=== PATIENT | female | born 1985 | race Caucasian/White ===

== ENCOUNTER 2016-10-28 21:42 | Inpatient (IN) | payer OTHER ==
[~2016-10-28] VITALS: Ht 157.5 cm; Wt 75.4 kg
[2016-10-28] MEDS ORDERED: CHOL2000 PO (23:59)
[2016-10-28] MEDS ORDERED: LORA1TAB PO (23:59)
[2016-10-28] MEDS ORDERED: TOPI50TA38 PO (23:59)
[2016-10-28] MEDS ORDERED: SPIR50TA2 PO (23:59)
[2016-10-28] MEDS ORDERED: MILN50TA PO (23:59)
[2016-10-28] MEDS ORDERED: LEVE500T56 PO (23:59)
[2016-10-28] MEDS ORDERED: LOSA25TA4 PO (23:59)
[2016-10-29] VITALS (8 sets, daily range): BP systolic 97–120; BP diastolic 51–71
[2016-10-29] MEDS ORDERED: ONDANSETRON PF 4 MG/2 ML VIAL. IV PRN (00:15)
[2016-10-29] MEDS ORDERED: HYDROcodone/APAP 5/325MG 1 TAB TABLET PO PRN (00:15)
[2016-10-29] MEDS ORDERED: MORPHINE SULFATE 2 MG/ML DISP.SYRIN. IV PRN (00:15)
[2016-10-29] MEDS ORDERED: ACETAMINOPHEN 325 MG TABLET. PO PRN (00:15)
[2016-10-29] MEDS ORDERED: LOSARTAN POTASSIUM 25 MG TABLET. PO SCH (00:30)
[2016-10-29] MEDS: levETIRAcetam 500 MG TABLET PO SCH ×2 (00:44→11:37)
[2016-10-29] MEDS: MILNACIPRAN 50 MG TABLET PO SCH ×2 (00:44→11:37)
[2016-10-29] MEDS: TOPIRAMATE 25 MG TABLET. PO SCH ×2 (00:44→11:37)
[2016-10-29] MEDS: IV NORMAL SALINE 1000ML BAG 1,000 ML IV SCH ×2 (00:47→10:15)
[2016-10-29 06:40] LABS: BASO # 0.1 x10^3/uL (0.0-0.2); BASO % 1 % (0-3); EOS % 1 % (0-3); HEMATOCRIT 35.8 % (36.0-47.0); HEMOGLOBIN 12.2 g/dL (12.0-15.5); LYMPH # 2.1 x10^3/uL (1.0-4.8); LYMPH % 36 % (24-48); MEAN CORPUSCULAR HEMOGLOBIN 31 pg (25-35); MEAN CORPUSCULAR HGB CONC 34 g/dL (31-37); MEAN CORPUSCULAR VOLUME 92 fL (79-100); MONO % 11 % (0-9); NEUT % 52 % (31-73); PLATELET COUNT 259 x10^3/uL (140-400); RED CELL DISTRIBUTION WIDTH 12.4 % (11.5-14.5)
[2016-10-29] MEDS ORDERED: ASPIRIN 325 MG TABLET PO ONE (08:00)
[2016-10-29] MEDS ORDERED: CHOLECALCIFEROL (VITAMIN D3) 1,000 UNIT TABLET PO SCH (09:00)
[2016-10-29] MEDS ORDERED: SPIRONOLACTONE 25 MG TABLET PO SCH (09:00)
--- NOTE | 2016-10-29 09:24 | PDOC2 ---
CARDIAC CONSULT DATE OF CONSULT Date of Consult DATE: 10/29/16 TIME: 09:23 REASON FOR CONSULT Reason for Consult: CP REFERRING PHYSICIAN Referring Physician: Dr. Kylee Thornton SOURCE Source: Chart review, Patient HISTORY OF PRESENT ILLNESS HISTORY OF PRESENT ILLNESS 31 year old female transferred from ER @ [facility] for CP, dizziness, and headache. ? sent there from PCP's office as unable to obtain pulse. Reportedly has been on the couch for the last week due to fatigue. When she stands up, she feels dizzy, develops bilateral chest tightness with a fast heart rate, becomes short of breath, her vision goes "white" and both hands become numbing and tingly. Headaches described as bilateral squeezing of her head and not similar to her migraines. Reports her BP has been low in the 90s (treated for HTN with losartan 25 mg daily as well as spironolactone) and her heart rate reportedly in the 200s. Those readings were obtained from a wrist cuff. Repeats normal food and fluid intake, though has lost 40 pounds since 03/2016 with dietary changes. EKG without evidence of ACS. Troponin levels X 3 between [facility] and [facility] without evidence of ACS. D-Dimer not consistent with pulmonary embolus. CXR @ [facility] without acute findings. K = 3.4 @ [facility]. Reason for Visit: CP PAST MEDICAL HISTORY Cardiovascular: HTN Pulmonary: No pertinent hx CENTRAL NERVOUS SYSTEM: Migraine, Seizure (tonic clonic epilepsy) GI: No pertinent hx Heme/Onc: Other (being evaluated for autoimmune and genetic disorders - details unclear) Hepatobiliary: No pertinent hx Psych: No pertinent hx Musculoskeletal: Other (joint hypermobility syndrome) Rheumatologic: Fibromyalgia, Other (chronic fatigue syndrome) Infectious disease: No pertinent hx ENT: No pertinent hx Renal/: Hematuria, Other (proteinuria) Endocrine: No pertinent hx Dermatology: No pertinent hx PAST SURGICAL HISTORY Past Surgical History: , Other (left elbow tendon release) FAMILY HISTORY Family History: Coronary Artery Disease (? mother with [place] at age 32), Hypertension SOCIAL HISTORY Smoke: Quit (3 years ago) ALCOHOL: rare Drugs: None Lives: with Family CURRENT MEDICATIONS CURRENT MEDICATIONS Current Medications Medications (Trade) Dose Ordered Sig/[place] Route PRN Reason Start Time Stop Time Status Last Admin Dose Admin Levetiracetam (Keppra) 500 mg BID PO 10/29/16 00:30 10/29/16 00:44 Milnacipran HCl (Savella) 50 mg BID PO 10/29/16 00:30 10/29/16 00:44 Topiramate (Topamax) 50 mg BID PO 10/29/16 00:30 10/29/16 00:44 Sodium Chloride 1,000 ml @ 100 mls/hr Q10H IV 10/29/16 00:15 10/29/16 00:47 ALLERGIES ALLERGIES: Coded Allergies: tramadol (Verified Allergy, Mild, 10/29/16) ROS Review of System 14 point review with pertinent positives in HPI PHYSICAL EXAM General: Alert, Oriented X3, Cooperative, No acute distress HEENT: Atraumatic, PERRLA Lungs: Clear to auscultation Heart: Regular rate, Normal S1, Normal S2, No murmurs, Other (tele: SR) Abdomen: Normal bowel sounds, Soft Extremities: No edema, Normal pulses Skin: No rashes Neuro: Normal speech Psych/Mental Status: Mental status NL, Mood NL MUSCULOSKELETAL: No deformity VITALS VITALS Vital Signs Date Time Temp Pulse Resp B/P (MAP) Pulse Ox O2 Delivery O2 Flow Rate FiO2 10/29/16 07:26 97.7 72 18 97/59 (72) 97 Room Air 97.7 LABS Lab: Laboratory Tests Test 10/29/16 00:45 10/29/16 06:23 Troponin I Quantitative < 0.017 ng/mL (0.000-0.055) < 0.017 ng/mL (0.000-0.055) White Blood Count 6.0 x10^3/uL (4.0-11.0) Red Blood Count 3.90 x10^6/uL (3.50-5.40) Hemoglobin 12.2 g/dL (12.0-15.5) Hematocrit 35.8 % (36.0-47.0) Mean Corpuscular Volume 92 fL (79-100) Mean Corpuscular Hemoglobin 31 pg (25-35) Mean Corpuscular Hemoglobin Concent 34 g/dL (31-37) Red Cell Distribution Width 12.4 % (11.5-14.5) Platelet Count 259 x10^3/uL (140-400) Neutrophils (%) (Auto) 52 % (31-73) Lymphocytes (%) (Auto) 36 % (24-48) Monocytes (%) (Auto) 11 % (0-9) Eosinophils (%) (Auto) 1 % (0-3) Basophils (%) (Auto) 1 % (0-3) Neutrophils # (Auto) 3.1 x10^3uL (1.8-7.7) Lymphocytes # (Auto) 2.1 x10^3/uL (1.0-4.8) Monocytes # (Auto) 0.6 x10^3/uL (0.0-1.1) Eosinophils # (Auto) 0.1 x10^3/uL (0.0-0.7) Basophils # (Auto) 0.1 x10^3/uL (0.0-0.2) UW-Zdl-N-Type Natriuretic Peptide 7 pg/mL (0-124) Thyroid Stimulating Hormone (TSH) 3.675 uIU/mL (0.358-3.74) IMAGES IMAGES see HPI; done @ [facility] EKG EKG see HPI; done @ [facility] ASSESSMENT/PLAN ASSESSMENT/PLAN 1. chest tightness, atypical likely panic/anxiety attacks given visual changes and bilateral hand numbness EKG and troponin levels not consistent with ACS; TSH normal; D-dimer normal will echo as she is being evaluated for lupus - if not significant findings - may discharge check FLP further cardiac evaluation not planned unless echo abnormal 2. HTN ? needs meds if highest reading in the 120s usual readings in the 90s to 100s 3. epilepsy resume home meds per primary service 4. fibromyalgia/chronic fatigue syndrome 5. 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
[2016-10-29] MEDS ORDERED: POTASSIUM CHLORIDE 20 MEQ TABLET.ER. PO ONE (10:15)
[2016-10-29 10:23] LABS: CHOLESTEROL/HDL RATIO 5.2
--- NOTE | 2016-10-29 12:22 | PDOC1 ---
History and Physical Date of Admission Date of Admission DATE: 10/29/16 TIME: 12:16 Identification/Chief Complaint Chief Complaint lightheaded, dizzy, low BP Problems: Source Source: Caregiver, Chart review, Patient History of Present Illness History of Present Illness 31 y.o female, transferred from [facility] of low BP, symptomatic, Claims her usual BP is 130s systolic. Pt claims PCP advised ER admission to figure out the cause of hypotension,. BUt looking at MAR - if home meds are reliable, she is on 2 antihypertensives, BP now is 100s systolic, orthostatics were done and neg and RN claims she was asymptomatic Pt claims she gets lightheaded/dizzy upright for prolonged periods of time, CLaims walking to and fro bathroom is fine, Echo done, read pending, TSH is normal, Cortisol is a send out and takes 48 hrs turn around (called lab) Past Medical History Cardiovascular: HTN Pulmonary: No pertinent hx CENTRAL NERVOUS SYSTEM: Migraine, Seizure (tonic clonic epilepsy) GI: No pertinent hx Heme/Onc: Other (being evaluated for autoimmune and genetic disorders - details unclear) Hepatobiliary: No pertinent hx Psych: No pertinent hx Musculoskeletal: Other (joint hypermobility syndrome) Rheumatologic: Fibromyalgia, Other (chronic fatigue syndrome) Infectious disease: No pertinent hx ENT: No pertinent hx Renal/: Hematuria, Other (proteinuria) Endocrine: No pertinent hx Dermatology: No pertinent hx Past Surgical History Past Surgical History: , Other (left elbow tendon release) Family History Family History: Coronary Artery Disease (? mother with [place] at age 32), Hypertension Social History Smoke: No (3 years ago) ALCOHOL: rare Drugs: None Current Medications Current Medications Current Medications Levetiracetam (Keppra) 500 mg BID PO Last administered on 10/29/16 11:37; Start 10/29/16 at 00:30 Losartan Potassium (Cozaar) 25 mg HS PO ; Start 10/29/16 at 00:30 Milnacipran HCl (Savella) 50 mg BID PO Last administered on 10/29/16 11:37; Start 10/29/16 at 00:30 Vitamin D (Vitamin D3) 2,000 unit DAILY PO Last administered on 10/29/16 11:37 ; Start 10/29/16 at 09:00 Spironolactone (Aldactone) 50 mg BID94 PO Last administered on 10/29/16 11:37 ; Start 10/29/16 at 09:00 Topiramate (Topamax) 50 mg BID PO Last administered on 10/29/16 11:37; Start 10/29/16 at 00:30 Sodium Chloride 1,000 ml @ 100 mls/hr Q10H IV Last administered on 10/29/16 00:47; Start 10/29/16 at 00:15 Acetaminophen (Tylenol) 650 mg PRN Q6HRS PRN PO PAIN; Start 10/29/16 at 00:15 Ondansetron HCl (Zofran) 4 mg PRN Q6HRS PRN IV NAUSEA/VOMITING; Start 10/29/16 at 00:15 Morphine Sulfate 2 mg PRN Q2HR PRN IV PAIN; Start 10/29/16 at 00:15 Acetaminophen/ Hydrocodone Bitart (Lortab 5/325) 1 tab PRN Q6HRS PRN PO PAIN; Start 10/29/16 at 00:15 Aspirin (Akanksha Aspirin) 325 mg 1X ONCE PO Last administered on 10/29/16 11:37 ; Start 10/29/16 at 08:00; Stop 10/29/16 at 08:01; Status DC Potassium Chloride (Klor-Con) 40 meq 1X ONCE PO Last administered on 11:36; Start 10/29/16 at 10:15; Stop 10/29/16 at 10:16; Status DC Active Scripts Active Reported Vitamin D (Cholecalciferol (Vitamin D3)) 2,000 Unit Capsule 1 Cap PO DAILY Topamax (Topiramate) 50 Mg Tablet 1 Tab PO BID Spironolactone 50 Mg Tablet 1 Tab PO BID Savella (Milnacipran Hcl) 50 Mg Tablet 1 Tab PO BID Losartan Potassium 25 Mg Tablet 25 Mg PO HS Lorazepam 1 Mg Tablet 1 Tab PO PRN Keppra (Levetiracetam) 500 Mg Tablet 1 Tab PO BID Allergies Allergies: Coded Allergies: tramadol (Verified Allergy, Mild, 10/29/16) ROS General: No: Chills, Night Sweats, Fatigue, Malaise, Appetite, Other PSYCHOLOGICAL ROS: No: Anxiety, Behavioral Disorder, Concentration difficultie , Decreased libido, Depression, Disorientation, Hallucinations, Hostility, Irritablity, Memory difficulties, Mood Swings, Obsessive thoughts, Physical abuse, Sexual abuse, Sleep disturbances, Suicidal ideation, Other Eyes: No Blurry vision, No Decreased vision, No Double vision, No Dry eyes, No Excessive tearing, No Eye Pain, No Itchy Eyes, No Loss of vision, No Photophobia , No Scotomata, No Uses contacts, No Uses glasses, No Other HEENT: No: Heacaches, Visual Changes, Hearing change, Nasal congestion, Nasal discharge, Oral lesions, Sinus pain, Sore Throat, Epistaxis, Sneezing, Snoring, Tinnitus, Vertigo, Vocal changes, Other ALLERGY AND IMMUNOLOGY: No: Hives, Insect Bite Sensitivity, Itchy/Watery Eyes, Nasal Congestion, Post Nasal Drip, Seasonal Allergies, Other Hematological and Lymphatic: No: Bleeding Problems, Blood Clots, Blood Transfusions, Brusing, Night Sweats, Pallor, Swollen Lymph Nodes, Other ENDOCRINE: No: Breast Changes, Galactorrhea, Hair Pattern Changes, Hot Flashes , Malaise/lethargy, Mood Swings, Palpitations, Polydipsia/polyuria, Skin Changes , Temperature Intolerance, Unexpected Weight Changes, Other Breast: No New/Changing Breast Lumps, No Nipple changes, No Nipple discharge, No Other Respiratory: No: Cough, Hemoptysis, Orthopnea, Pleuritic Pain, Shortness of breath, SOB with excertion, Sputum Changes, Stridor, Tachypnea, Wheezing, Other Cardiovascular: No Chest Pain, No Palpitations, No Orthopnea, No Paroxysmal Noc. Dyspnea, No Edema, No Lt Headedness, No Other Gastrointestinal: No Nausea, No Vomiting, No Abdominal Pain, No Diarrhea, No Constipation, No Melena, No Hematochezia, No Other Genitourinary: No Dysuria, No Frequency, No Incontinence, No Hematuria, No Retention, No Discharge, No Urgency, No Pain, No Flank Pain, No Other, No , No , No , No , No , No , No Neurological: Yes Dizziness, Yes Other (lightheaded) Skin: No Dry Skin, No Eczema, No Hair Changes, No Lumps, No Mole Changes, No Mottling, No Nail Changes, No Pruritus, No Rash, No Skin Lesion Changes, No Other, No Acne Physical Exam General: Alert, Oriented X3, Cooperative, No acute distress HEENT: Atraumatic, PERRLA, EOMI Lungs: Clear to auscultation, Normal air movement Heart: S1S2, RRR, no thrills, no rubs, no gallops, no murmurs Cardiovascular: S1, S2 Breasts: Normal, Rt breast nml w/o mass, Lt breast nml w/o mass, Nipples normal Abdomen: Normal bowel sounds, Soft, No tenderness, No hepatosplenomegaly, No masses Rectal Exam: not examined PELVIC: Nml ext genitalia Extremities: No clubbing, No cyanosis, No edema, Normal pulses, No tenderness/ swelling Skin: No rashes, No breakdown, No significant lesion Neuro: Normal gait, Normal speech, Strength at 5/5 X4 ext, Normal tone, Sensation intact, Cranial nerves 3-12 NL, Reflexes 2+ Psych/Mental Status: Mental status NL, Mood NL Vitals Vitals Vital Signs Date Time Temp Pulse Resp B/P (MAP) Pulse Ox O2 Delivery O2 Flow Rate FiO2 10/29/16 10:20 97.2 92 18 109/60 (76) 96 Room Air 97.2 Labs Labs Laboratory Tests Test 10/29/16 00:45 10/29/16 06:23 Troponin I Quantitative < 0.017 ng/mL (0.000-0.055) < 0.017 ng/mL (0.000-0.055) White Blood Count 6.0 x10^3/uL (4.0-11.0) Red Blood Count 3.90 x10^6/uL (3.50-5.40) Hemoglobin 12.2 g/dL (12.0-15.5) Hematocrit 35.8 % (36.0-47.0) Mean Corpuscular Volume 92 fL (79-100) Mean Corpuscular Hemoglobin 31 pg (25-35) Mean Corpuscular Hemoglobin Concent 34 g/dL (31-37) Red Cell Distribution Width 12.4 % (11.5-14.5) Platelet Count 259 x10^3/uL (140-400) Neutrophils (%) (Auto) 52 % (31-73) Lymphocytes (%) (Auto) 36 % (24-48) Monocytes (%) (Auto) 11 % (0-9) Eosinophils (%) (Auto) 1 % (0-3) Basophils (%) (Auto) 1 % (0-3) Neutrophils # (Auto) 3.1 x10^3uL (1.8-7.7) Lymphocytes # (Auto) 2.1 x10^3/uL (1.0-4.8) Monocytes # (Auto) 0.6 x10^3/uL (0.0-1.1) Eosinophils # (Auto) 0.1 x10^3/uL (0.0-0.7) Basophils # (Auto) 0.1 x10^3/uL (0.0-0.2) GA-Ipx-E-Type Natriuretic Peptide 7 pg/mL (0-124) Triglycerides Level 74 mg/dL (0-150) Cholesterol Level 146 mg/dL (0-200) LDL Cholesterol, Calculated 103 mg/dL (0-100) VLDL Cholesterol, Calculated 15 mg/dL (0-40) Non-HDL Cholesterol Calculated 118 mg/dL (0-129) HDL Cholesterol 28 mg/dL (40-60) Cholesterol/HDL Ratio 5.2 Thyroid Stimulating Hormone (TSH) 3.675 uIU/mL (0.358-3.74) Laboratory Tests Test 10/29/16 00:45 10/29/16 06:23 Troponin I Quantitative < 0.017 ng/mL (0.000-0.055) < 0.017 ng/mL (0.000-0.055) White Blood Count 6.0 x10^3/uL (4.0-11.0) Red Blood Count 3.90 x10^6/uL (3.50-5.40) Hemoglobin 12.2 g/dL (12.0-15.5) Hematocrit 35.8 % (36.0-47.0) Mean Corpuscular Volume 92 fL (79-100) Mean Corpuscular Hemoglobin 31 pg (25-35) Mean Corpuscular Hemoglobin Concent 34 g/dL (31-37) Red Cell Distribution Width 12.4 % (11.5-14.5) Platelet Count 259 x10^3/uL (140-400) Neutrophils (%) (Auto) 52 % (31-73) Lymphocytes (%) (Auto) 36 % (24-48) Monocytes (%) (Auto) 11 % (0-9) Eosinophils (%) (Auto) 1 % (0-3) Basophils (%) (Auto) 1 % (0-3) Neutrophils # (Auto) 3.1 x10^3uL (1.8-7.7) Lymphocytes # (Auto) 2.1 x10^3/uL (1.0-4.8) Monocytes # (Auto) 0.6 x10^3/uL (0.0-1.1) Eosinophils # (Auto) 0.1 x10^3/uL (0.0-0.7) Basophils # (Auto) 0.1 x10^3/uL (0.0-0.2) KG-Spw-L-Type Natriuretic Peptide 7 pg/mL (0-124) Triglycerides Level 74 mg/dL (0-150) Cholesterol Level 146 mg/dL (0-200) LDL Cholesterol, Calculated 103 mg/dL (0-100) VLDL Cholesterol, Calculated 15 mg/dL (0-40) Non-HDL Cholesterol Calculated 118 mg/dL (0-129) HDL Cholesterol 28 mg/dL (40-60) Cholesterol/HDL Ratio 5.2 Thyroid Stimulating Hormone (TSH) 3.675 uIU/mL (0.358-3.74) VTE Prophylaxis Ordered VTE Prophylaxis Devices: Yes VTE Pharmacological Prophylaxi: Yes Assessment/Plan Assessment/Plan 1. Relative hypotension 2. Negative orthostasis 3. NOrmal TSH 4. PTSD hx 5. Anxiety NOS PLAn: Echo Cortisol turn around is 48 hrs Ok to dc home if echo normal Dw RN and pt CHOCO GOLDSTEIN MD Oct 29, 2016 12:22
--- NOTE | 2016-10-29 12:23 | PDOC3 ---
Discharge Summary Visit Information Date of Admission: Oct 28, 2016 Date of Discharge: Oct 29, 2016 Admitting Diagnosis Comment: Assessment/Plan 1. Relative hypotension 2. Negative orthostasis 3. NOrmal TSH 4. PTSD hx 5. Anxiety NOS PLAn: Echo Cortisol turn around is 48 hrs Ok to dc home if echo normal Brief Hospital Course Allergies Allergies Coded Allergies Type Severity Reaction Last Updated Verified tramadol Allergy Mild 10/29/16 Yes Vital Signs Vital Signs Date Time Temp Pulse Resp B/P (MAP) Pulse Ox O2 Delivery O2 Flow Rate FiO2 10/29/16 10:20 97.2 92 18 109/60 (76) 96 Room Air 97.2 Lab Results Laboratory Tests Test 10/29/16 00:45 10/29/16 06:23 Troponin I Quantitative < 0.017 ng/mL (0.000-0.055) < 0.017 ng/mL (0.000-0.055) White Blood Count 6.0 x10^3/uL (4.0-11.0) Red Blood Count 3.90 x10^6/uL (3.50-5.40) Hemoglobin 12.2 g/dL (12.0-15.5) Hematocrit 35.8 % (36.0-47.0) Mean Corpuscular Volume 92 fL (79-100) Mean Corpuscular Hemoglobin 31 pg (25-35) Mean Corpuscular Hemoglobin Concent 34 g/dL (31-37) Red Cell Distribution Width 12.4 % (11.5-14.5) Platelet Count 259 x10^3/uL (140-400) Neutrophils (%) (Auto) 52 % (31-73) Lymphocytes (%) (Auto) 36 % (24-48) Monocytes (%) (Auto) 11 % (0-9) Eosinophils (%) (Auto) 1 % (0-3) Basophils (%) (Auto) 1 % (0-3) Neutrophils # (Auto) 3.1 x10^3uL (1.8-7.7) Lymphocytes # (Auto) 2.1 x10^3/uL (1.0-4.8) Monocytes # (Auto) 0.6 x10^3/uL (0.0-1.1) Eosinophils # (Auto) 0.1 x10^3/uL (0.0-0.7) Basophils # (Auto) 0.1 x10^3/uL (0.0-0.2) KX-Swr-G-Type Natriuretic Peptide 7 pg/mL (0-124) Triglycerides Level 74 mg/dL (0-150) Cholesterol Level 146 mg/dL (0-200) LDL Cholesterol, Calculated 103 mg/dL (0-100) VLDL Cholesterol, Calculated 15 mg/dL (0-40) Non-HDL Cholesterol Calculated 118 mg/dL (0-129) HDL Cholesterol 28 mg/dL (40-60) Cholesterol/HDL Ratio 5.2 Thyroid Stimulating Hormone (TSH) 3.675 uIU/mL (0.358-3.74) Cortisol AM Sample 6.5 ug/dL (6.2-19.4) Laboratory Tests Test 10/29/16 00:45 10/29/16 06:23 Troponin I Quantitative < 0.017 ng/mL (0.000-0.055) < 0.017 ng/mL (0.000-0.055) White Blood Count 6.0 x10^3/uL (4.0-11.0) Red Blood Count 3.90 x10^6/uL (3.50-5.40) Hemoglobin 12.2 g/dL (12.0-15.5) Hematocrit 35.8 % (36.0-47.0) Mean Corpuscular Volume 92 fL (79-100) Mean Corpuscular Hemoglobin 31 pg (25-35) Mean Corpuscular Hemoglobin Concent 34 g/dL (31-37) Red Cell Distribution Width 12.4 % (11.5-14.5) Platelet Count 259 x10^3/uL (140-400) Neutrophils (%) (Auto) 52 % (31-73) Lymphocytes (%) (Auto) 36 % (24-48) Monocytes (%) (Auto) 11 % (0-9) Eosinophils (%) (Auto) 1 % (0-3) Basophils (%) (Auto) 1 % (0-3) Neutrophils # (Auto) 3.1 x10^3uL (1.8-7.7) Lymphocytes # (Auto) 2.1 x10^3/uL (1.0-4.8) Monocytes # (Auto) 0.6 x10^3/uL (0.0-1.1) Eosinophils # (Auto) 0.1 x10^3/uL (0.0-0.7) Basophils # (Auto) 0.1 x10^3/uL (0.0-0.2) LW-Fzw-Z-Type Natriuretic Peptide 7 pg/mL (0-124) Triglycerides Level 74 mg/dL (0-150) Cholesterol Level 146 mg/dL (0-200) LDL Cholesterol, Calculated 103 mg/dL (0-100) VLDL Cholesterol, Calculated 15 mg/dL (0-40) Non-HDL Cholesterol Calculated 118 mg/dL (0-129) HDL Cholesterol 28 mg/dL (40-60) Cholesterol/HDL Ratio 5.2 Thyroid Stimulating Hormone (TSH) 3.675 uIU/mL (0.358-3.74) Cortisol AM Sample 6.5 ug/dL (6.2-19.4) Brief Hospital Course 31 y.o female, transferred from [facility] of low BP, symptomatic, Claims her usual BP is 130s systolic. Pt claims PCP advised ER admission to figure out the cause of hypotension,. BUt looking at [facility] - if home meds are reliable, she is on 2 antihypertensives, BP now is 100s systolic, orthostatics were done and neg and RN claims she was asymptomatic Pt claims she gets lightheaded/dizzy upright for prolonged periods of time, CLaims walking to and fro bathroom is fine, Echo done, read pending, TSH is normal, Cortisol is a send out and takes 48 hrs turn around (called lab) COURSe: if echo neg, will send home, Will send cortisol level results if abN - less than 3 is diagnostic of adrenal insuff Discharge Information Condition at Discharge: Improved, Stable Disposition/Orders: D/C to Home Scheduled Cholecalciferol (Vitamin D3) (Vitamin D), 1 CAP PO DAILY, (Reported) Levetiracetam (Keppra), 1 TAB PO BID, (Reported) Losartan Potassium (Losartan Potassium), 25 MG PO HS, (Reported) Milnacipran Hcl (Savella), 1 TAB PO BID, (Reported) Spironolactone (Spironolactone), 1 TAB PO BID, (Reported) Topiramate (Topamax), 1 TAB PO BID, (Reported) Scheduled PRN Lorazepam (Lorazepam), 1 TAB PO for SEIZURES, (Reported) CHOCO GOLDSTEIN MD Oct 29, 2016 12:23
--- NOTE | 2016-10-29 14:36 | CARD ---
APPROVED REPORT EXAM: Two-dimensional and M-mode echocardiogram with Doppler and color Doppler. Other Information Quality : FairHR: 86bpm INDICATION Hypertension/HCVD Chest Pain Auto immune disorder 2D DIMENSIONS RVDd2.6 (2.9-3.5cm)Left Atrium(2D)2.6 (1.6-4.0cm) IVSd0.7 (0.7-1.1cm)Aortic Root(2D)2.6 (2.0-3.7cm) LVDd3.9 (3.9-5.9cm)LVOT Diameter1.9 (1.8-2.4cm) PWd0.7 (0.7-1.1cm)LVDs2.8 (2.5-4.0cm) FS (%) 29.1 %SV38.2 ml LVEF(%)56.5 (>50%) Aortic Valve AoV Peak William.116.5cm/sAoV VTI21.8cm AO Peak GR.5.4mmHgLVOT VTI 18.37cm AO Mean GR.3mmHgAVA (VTI)2.46cm2 Mitral Valve MV E Nmasqvvv20.5cm/sMV E Peak Gr.4mmHg MV DECEL [id number] A Hjpzstcz76.3cm/s MV E Mean Gr.2mmHgMV [id number] E/A Ratio1.2MV A [id number] MVA (PHT)3.67cm2 TDI Lateral E' P. V15.73cm/sMedial E' P. V12.94cm/s E/Lateral E'5.0E/Medial E'6.1 LEFT VENTRICLE The left ventricle is normal size. There is normal left ventricular wall thickness. The left ventricu lar systolic function is normal. The ejection fraction is estimated at 55-60%. There is normal LV seg mental wall motion. The left ventricular diastolic function and filling is normal for age. RIGHT VENTRICLE The right ventricle is normal size. The right ventricular systolic function is normal. ATRIA The left atrium size is normal. The right atrium size is normal. The interatrial septum is intact wit h no evidence for an atrial septal defect or patent foramen ovale as noted on 2-D or Doppler imaging. AORTIC VALVE The aortic valve is normal in structure and function. Doppler and Color Flow revealed no significant aortic regurgitation. There is no significant aortic valvular stenosis. MITRAL VALVE The mitral valve is normal in structure and function. There is no mitral valve stenosis. Doppler and Color Flow revealed no mitral valve regurgitation noted. TRICUSPID VALVE The tricuspid valve is normal in structure and function. Doppler and Color Flow revealed no tricuspid valve regurgitation noted. PULMONIC VALVE The pulmonary valve is normal in structure and function. Doppler and Color Flow revealed no pulmonic valvular regurgitation. GREAT VESSELS The aortic root is normal in size. The ascending aorta is normal in size. The IVC is normal in size a nd collapses >50% with inspiration. PERICARDIAL EFFUSION There is no evidence of significant pericardial effusion. Critical Notification Critical Value: No <Conclusion> The left ventricular systolic function is normal. The ejection fraction is estimated at 55-60%. There is normal LV segmental wall motion. There is no evidence of significant pericardial effusion.
== END 2016-10-29 16:10 | disposition home or self-care (01) | DRG 316 ==
LOC: 2 NORTH 23:05
PROVIDERS: ADMIT Internal Medicine; ATTEND Internal Medicine
DX: I95.9 Hypotension, unspecified (principal); G43.909 Migraine, unspecified, not intractable, without status migrainosus; G40.409 Other generalized epilepsy and epileptic syndromes, not intractable, without status epilepticus; E87.6 Hypokalemia; F43.10 Post-traumatic stress disorder, unspecified; R07.89 Other chest pain; R53.82 Chronic fatigue, unspecified; F41.9 Anxiety disorder, unspecified; I10 Essential (primary) hypertension; M79.7 Fibromyalgia; Z79.899 Other long term (current) drug therapy; Z82.49 Family history of ischemic heart disease and other diseases of the circulatory system; Z98.891 History of uterine scar from previous surgery; Z88.8 Allergy status to other drugs, medicaments and biological substances
CPT/HCPCS: 36415; 80061; 82533; 83880; 84443; 84484; 85027; 93306; J7030